=== PATIENT | female | born 1965 | race Caucasian/White ===

== ENCOUNTER 2024-05-23 14:32 | Outpatient (REF) | payer MEDICARE, SELFPAY ==
[2024-05-23 14:55] LABS: MANUAL DIFF FLAG NO
[2024-05-23 15:40] LABS: Basophils Absolute Auto 0.1 X10*3/uL (0.0-0.2); Basophils Percent Auto 1.3 % (0-2); Eosinophils Absolute Auto 0.3 X10*3/uL (0.0-0.4); Eosinophils Percent Auto 3.6 % (0-4); Hematocrit 38.2 % (37.0-47.0); Hemoglobin 12.1 g/dl (12.0-16.0); Imm Gran Abs Auto 0.02 X10*3/uL (0.00-0.03); Imm Gran Pct Auto 0.3 % (0.0-0.4); Lymphocytes Absolute Auto 1.3 X10*3/uL (1.2-4.9); Lymphocytes Percent Auto 15.7 % (20-40); Mean Corpuscular HGB Conc 31.7 g/dl (31.0-35.0); Mean Corpuscular Hemoglobin 30.8 pg (27.0-33.0); Mean Corpuscular Volume 97.2 fL (80.0-98.0); Mean Platelet Volume 9.5 fL (9.4-12.3); Monocytes Absolute Auto 0.5 X10*3/uL (0.1-1.2); Monocytes Percent Auto 6.8 % (2-11); Neutrophils Absolute Auto 5.8 x10*3/uL (2.0-8.3); Neutrophils Percent Auto 72.3 % (45-73); Platelet Count 297 X10*3/uL (160-400); Red Blood Count 3.93 X10*6/uL (4.20-5.50); Red Cell Distribution Width 14.7 % (11.0-16.0)
--- OUTSIDE RECORDS SUMMARY | 2024-05-23 15:52 | XMS_ITS | Encounter Summary ---
Author Organization [facility] Address [address] [place] [address] Phone Care Team Providers Care Mud Analysis Well Logging Captain Name Role Phone Archie Reyes DO Primary Care Provider [phone] Encounter Details Date Type Department Care Team (Late st Contact Info) Description 02/05/2023 Documentation Only [facility] [address] [place] [address] Laura Arceo [address] [place] [address] Social History Tobacco Use Types Packs/Day Years Used Date Smoking Tobacco: Every Day Cigarettes Comments Unknown Sex and Gender Information Value Date Recorded Sex Assigned at Not on file Legal Sex Female 4:13 PM EDT Gender Identity Not on file Sexual Orientation Not on file documented as of this encounter Plan of Treatment Not on file documented as of this encounter Visit Diagnoses Not on filedocumented in this encounter Care Teams Mud Analysis Well Logging Captain Relationship Specialty Start Date End Date Archie Reyes DO [address] [place] [id number] PCP - General Family Medicine 01/02/22 documented as of this encounter
--- OUTSIDE RECORDS SUMMARY | 2024-05-23 15:52 | XMS_ITS | Clinical Summary ---
Author Organization [facility], Address [address] [place] [address] [place] [address] Phone Care Team Providers Care Sash Installer Name Role Phone Archie Reyes DO Primary Care Provider [phone] Allergies No known active allergies Medications aspirin (ST DEV) 81 MG EC tablet Take 81 mg by mouth 1 (one) time each day Active atorvastatin (LIPITOR) 10 MG tablet Take 10 mg by mouth 1 (one) time each day Active carisoprodol (SOMA) 350 MG tablet Take 350 mg by mouth in the morning and 350 mg at noon and 350 mg in the evening. Active clonazePAM (KlonoPIN) 0.5 MG tablet Take 0.75 mg by mouth 1 (one) time each day in the morning Active Butalbital-APAP -Caff-Cod 63-026-50-30 MG capsule Take 1 capsule by mouth every 4 (four) hours Active omega-3 (FISH OIL) 1000 MG capsule Take 1,000 mg by mouth in the morning and 1,000 mg in the evening. Active folic acid (FOLVITE) 1 MG tablet Take 1 mg by mouth 1 (one) time each day Active gabapentin (NEURONTIN) 300 MG capsule Take 300 mg by mouth 1 (one) time each day Active GLUCOSAMINE-CHO NDROITIN ER PO Take by mouth Active lamoTRIgine (LaMICtal) 100 MG tablet Take 100 mg by mouth 1 (one) time each day Active levothyroxine (SYNTHROID, LEVOTHROID) 88 MCG tablet Take one full tablet M-F, one half tablet S-S Active lithium (LITHOBID) 300 MG CR tablet Take 300 mg by mouth 1 (one) time each day Do not crush, chew, or split. Active omeprazole (PriLOSEC) [address] capsule Take 40 mg by mouth in the morning and 40 mg in the evening. Do not crush or chew. . Active QUEtiapine (SEROquel) 100 MG tablet Take 150 mg by mouth 1 (one) time each day Active sucralfate (CARAFATE) 1 g tablet Take 1 g by mouth in the morning and 1 g in the evening. 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 4 Folic acid deficiency 02/24/20222023 Family History Medical History Relation Comments Other Father cardiac arrest Colon cancer Mother Relation Status Comments Father Mother Social History Tobacco Use Types Packs/Day Years Used Date Smoking Tobacco: Every Day Cigarettes Comments Unknown Sex and Gender Information Value Date Recorded Sex Assigned at Not on file Legal Sex Female 4:13 PM EDT Gender Identity Not on file Sexual Orientation Not on file Plan of Treatment Health Maintenance Due Date Last Done Comments Breast Cancer Screening 1964 Pneumococcal Vaccine: Pediat rics (0 to 5 Years) and At-Risk Patients (6 to 64 Years) (1 of 2 - PCV) 1970 Hepatitis B Vaccine (1 of 3 - 19+ 3-dose series) 11/04 Colorectal Cancer Screening: Annual FOBT 2013 Colorectal Cancer Screening: Colonoscopy 2013 Colorectal Cancer Screening: Sigmoidoscopy 2013 Influenza Vaccine (#1) 2023 Insurance [facility] Care Teams Sash Installer Relationship Specialty Start Date End Date Archie Reyes DO [address] [place] [id number] PCP - General Family Medicine 01/02/22
--- OUTSIDE RECORDS SUMMARY | 2024-05-23 15:52 | XMS_ITS | Encounter Summary ---
Author Organization [facility] Address [address] [place] [address] Phone Care Team Providers Care Silicator Name Role Phone Archie Reyes DO Primary Care Provider [phone] Encounter Details Date Type Department Care Team (Late st Contact Info) Description 01/02/2022 Documentation Only [facility] [place], [address] [place] [address] [place] [address] [place] [address] Social History Tobacco Use Types Packs/Day Years Used Date Smoking Tobacco: Never Assessed Comments Unknown Sex and Gender Information Value Date Recorded Sex Assigned at Not on file Legal Sex Female 4:13 PM EDT Gender Identity Not on file Sexual Orientation Not on file documented as of this encounter Plan of Treatment Not on file documented as of this encounter Visit Diagnoses Not on filedocumented in this encounter Care Teams Silicator Relationship Specialty Start Date End Date Archie Reyes DO [address] [place] [phone] PCP - General Family Medicine 01/02/22 documented as of this encounter
--- OUTSIDE RECORDS SUMMARY | 2024-05-23 15:52 | XMS_ITS | Encounter Summary ---
Author Organization [facility] Address [address] [place] [address] Care Team Providers Care Zyglo Technician Name Role Phone Lizzie Garrett Primary Care Provider [phone] Encounter Details Date Type Department Care Team (Late st Contact Info) Description 05/10/2024 Telephone Gastroenterology - [address] [place] [address] Ever Castillo MD [address] [place] R [address] [place] [id number] Social History Tobacco Use Types Packs/Day Years Used Date Smoking Tobacco: Never Assessed Comments Unknown Sex and Gender Information Value Date Recorded Sex Assigned at Not on file Legal Sex Female 6:15 AM EST Gender Identity Not on file Sexual Orientation Not on file documented as of this encounter Progress Notes * Neisha Gifford - 05/10/2024 1:57 PM EST Rescheduled pt for 07/01/24 at 1:45pm documented in this encounter Plan of Treatment Upcoming Encounters Date Type Department Care Team (Late st Contact Info) Description 07/01/2024 1:45 PM EDT Office Visit Gastroenterology - [address] [place] [phone] Ever Castillo MD [address] [place] [address] [place] [address] [phone] documented as of this encounter Visit Diagnoses Not on filedocumented in this encounter Care Teams Zyglo Technician Relationship Specialty Start Date End Date Lizzie Garrett PA [address] PCP - General Physician Certified Veterinary Technician 02/03/24 documented as of this encounter
--- OUTSIDE RECORDS SUMMARY | 2024-05-23 15:52 | XMS_ITS | Encounter Summary ---
Author Organization [facility] Address [address] [place] [address] Phone Care Team Providers Care Biological Inspector Name Role Phone Archie Reyes DO Primary Care Provider [phone] Encounter Details Date Type Department Care Team (Late st Contact Info) Description 01/02/2022 Documentation Only [facility] [place], [address] [place] [address] [place] [address] [place] [address] Social History Tobacco Use Types [...] on filedocumented in this encounter Care Teams Biological Inspector Relationship Specialty Start Date End Date Archie Reyes DO [address] [place] [id number] PCP - General Family Medicine 01/02/22 documented as of this encounter
--- OUTSIDE RECORDS SUMMARY | 2024-05-23 15:52 | XMS_ITS | Clinical Summary ---
Author Organization [facility] [address] [facility] Address [address] [place] [address] Phone Care Team Providers Care Supervisor Testing Name Role Phone Lizzie Garrett Primary Care Provider [phone] Medications omeprazole (PriLOSEC) [address] capsuleIndicatio ns:gastroesophag eal reflux disease Take 1 capsule (40 mg total) by mouth 2 (two) times a day. Do not crush or chew. 60 each 5 03/16/2024 09/13/19 25 Active sucralfate (CARAFATE) 1 gram tabletIndication s:Gastroesophage al reflux disease without esophagitis TAKE 1 TABLET BY MOUTH FOUR TIMES DAILY BEFORE MEALS AND AT BEDTIME 120 tablet 3 05/02/2024 Active Active Problems Problem Noted Date Diagnosed Date GERD (gastroesophageal reflux disease) Hx of colonic polyps 03/02/2024 Constipation 03/02/2024 Encounters Date Type Department Care Team Description 05/10/2024 Telephone Gastroenterology - [address] [place] [phone] Ever Castillo MD 03/16/2024 Telephone Gastroenterology - [address] [place] [phone] Fanta Perla [place] 03/16/2024 Telephone Gastroenterology - [address] [place] [phone] Heidi Ovalles MA from Last 3 Months Social History Tobacco Use Types Packs/Day Years Used Date Smoking Tobacco: Never Assessed Comments Unknown Sex and Gender Information Value Date Recorded Sex Assigned at Not on file Legal Sex Female 6:15 AM EST Gender Identity Not on file Sexual Orientation Not on file Plan of Treatment Upcoming Encounters Date Type Department Care Team (Late st Contact Info) Description 07/01/2024 1:45 PM EDT Office Visit Gastroenterology - [address] [place] [phone] Ever Castillo MD [address] [place] [address] Health Maintenance Due Date Last Done Comments Breast Cancer Screening 1964 DTaP,Tdap,and Td Vaccines (1 - Tdap) 11/05/1983 Hepatitis B Vaccines (1 of 3 - 19+ 3-dose series) 11/05/1983 Cervical Cancer Screening: P ap Smear 1985 Zoster Vaccines (1 of 2) 2014 Colorectal Cancer Screening: Colonoscopy 03/16/2022 Depression Screening 03/16/2022 HIV Screening 03/16/2022 Hepatitis C Screening 03/16/2022 Medicare Annual Wellness Visit 03/16/2022 Social Influencers of Health Screening 03/16/2022 COVID-19 Vaccine ( - 2023-2 5 season) 2023 Influenza Vaccine (#1) 2023 RSV Immunization Patients 60 + Years Old (1 - 1-dose 75+ series) 11/05/2039 HIB Vaccines Aged Out No longer eligi ble based on patient's age to complete this topic HPV Vaccines Aged Out No longer eligi ble based on patient's age to complete this topic Hepatitis A Vaccines Aged Out No long er eligible based on patient's age to complete this topic IPV Vaccines Aged Out No longer eligi ble based on patient's age to complete this topic MMR Vaccines Aged Out No longer eligi ble based on patient's age to complete this topic Meningococcal ACWY Vaccine Aged Out N o longer eligible based on patient's age to complete this topic Pneumococcal Vaccine: Pediat rics (0 to 5 Years) and At-Risk Patients (6 to 64 Years) Aged Out No longer eligible b ased on patient's age to complete this topic RSV Immunization Patients Un yadira 20 months Aged Out No longer eligible b ased on patient's age to complete this topic Varicella Vaccines Aged Out No longer eligible based on patient's age to complete this topic Insurance [employer] Advance Directives Documents on File Type Date Recorded Patient Postal Support Employee Expl anation Health Care Decision (hx) 10/23/2021 AD HENRIQUEZ DIRECTIVE Health Care Decision (hx) 10/23/2021 AD HENRIQUEZ DIRECTIVE Care Teams Supervisor Testing Relationship Specialty Start Date End Date Lizzie Garrett PA [address] [place] PCP - General Physician Checker Stocker 02/03/24
[2024-05-23 16:08] LABS: Anion Gap 10 (12-20); Blood Urea Nitrogen 13 mg/dL (9-16); Calcium 8.9 mg/dL (8.4-10.2); Carbon Dioxide 30 mmol/L (22-29); Chloride 109 mmol/L (96-108); Estimated Glomerular Filt Rate > 60; Glucose Random 86 mg/dL (60-115); Potassium 3.8 mmol/L (3.3-5.1); Sodium 145 mmol/L (135-145)
[2024-05-23 16:39] LABS: Folate > 20.0 ng/mL (> or = 4.0); Vitamin B12 394 pg/mL (200-900)
== END 2024-05-23 14:33 | disposition home or self-care (01) ==
LOC: HO.LAB 14:32
PROVIDERS: PCP Physician Assistant Medical; Visit Provider Registered Nurse
DX: G31.84 Mild cognitive impairment of uncertain or unknown etiology (principal)
CPT/HCPCS: 36415; 80048; 82607; 82746; 84439; 84443; 85025

== ENCOUNTER 2024-09-16 15:50 | Outpatient (REF) | payer MEDICARE, SELFPAY ==
--- NOTE | ~2024-09-16 | CT_ITS ---
EXAMINATION: CT HEAD WITHOUT CONTRAST CLINICAL INFORMATION: Mild cognitive impairment COMPARISON: April 03, 2017 TECHNIQUE: Contiguous axial imaging was performed from the skull base to vertex without intravenous administration of contrast. This CT examination was performed using dose optimization techniques as appropriate, variously including the following: *Automated exposure control *Adjustment of mA and/or kV according to patient size (this includes techniques or standardized protocols for targeted exams where dose is matched to indication/reason for exam; i.e. extremities or head) *Use of iterative reconstruction technique DLP: 684 mGY*cm FINDINGS: There is no acute ischemic change. There is no intracranial hemorrhage. There is no mass-effect or midline shift. Basal cisterns and ventricles are within normal limits for size. Paranasal sinuses are clear. No bony abnormality. CT/CT head/brain wo IV con IMPRESSION: No acute intracranial abnormality. Electronically signed by: Bhavesh Akhtar MD 09/16/2024 05:55 PM EDT
--- OUTSIDE RECORDS SUMMARY | 2024-09-16 15:53 | XMS_ITS | Clinical Summary ---
Author Organization [facility] [address] [facility] Address [address] [place] [address] Phone Care Team Providers Care Stage Builder Name Role Phone Lizzie Garrett Primary Care Provider [phone] Allergies No known active allergies Medications sucralfate (CARAFATE) 1 gram tabletIndicatio ns:Gastroesopha geal reflux disease without esophagitis TAKE 1 TABLET BY MOUTH FOUR TIMES DAILY BEFORE MEALS AND AT BEDTIME 120 tablet 3 05/02/19 25 Active atorvastatin (LIPITOR) 20 mg tablet Take 1 tablet (20 mg total) by mouth 1 (one) time each day. 05/13/19 25 Active butalbital-acet aminophen-caffe ine-codeine (FIORICET WITH CODEINE) [id number] mg per capsule Take 1 capsule by mouth every 6 (six) hours if needed. Max Daily Amount: 4 capsules 05/23/19 25 Active carisoprodoL (SOMA) 350 mg tablet Take 1 tablet (350 mg total) by mouth 2 (two) times a day if needed. 05/20/19 25 Active clonazePAM (KlonoPIN) 0.5 mg tablet TAKE 1 TABLET BY MOUTH TWICE DAILY NEEDED FOR SEVERE ANXIETY 05/16/19 25 Active cloNIDine (CATAPRES) 0.2 mg tablet TAKE 1 TABLET BY MOUTH TWICE DAILY NEEDED FOR PANIC ATTACKS 02/23/20 24 Active gabapentin (NEURONTIN) 400 mg capsule Take 1 capsule (400 mg total) by mouth. at bedtime 05/13/19 25 Active lamoTRIgine (LaMICtal) 200 mg tablet Take 1 tablet (200 mg total) by mouth 1 (one) time each day. 05/19/19 25 Active levothyroxine (SYNTHROID, LEVOTHROID) 88 mcg tablet TAKE 1 TABLET BY MOUTH THURSDAY THROUGH THURSDAY THEN TAKE 1 AND 1/2 TABLETS BY MOUTH THURSDAY AND Thursday05/02/19 25 Active QUEtiapine XR (SEROquel XR) 200 mg 24 hr tablet TAKE 1 TABLET BY MOUTH EVERY NIGHT AT BEDTIME WITH 50 MG TABLET FOR TOTAL DOSE OF 250 MG 11/05/19 24 Active QUEtiapine XR (SEROquel XR) 150 mg 24 hr tablet Take 1 tablet (150 mg total) by mouth. at bedtime 06/25/19 24 Active triamcinolone (KENALOG) 0.025 % cream apply topically twice daily for 14 days 12/03/19 24 Active trospium 60 mg capsule,extende d release 24hr Take 1 capsule (60 mg total) by mouth 1 (one) time each day in the morning. 04/11/20 24 Active omeprazole (PriLOSEC) [address] capsuleIndicati ons:Gastroesoph ageal reflux disease without esophagitis TAKE 1 CAPSULE(40 MG) BY MOUTH TWICE DAILY. DO NOT CRUSH OR CHEW 60 capsule 3 09/03/19 25 Active omeprazole (PriLOSEC) [address] capsuleIndicati ons:gastroesoph ageal reflux disease Take 1 capsule (40 mg total) by mouth 2 (two) times a day. Do not crush or chew. 60 each 5 03/16/20 24 025 Discontinued Active Problems Problem Noted Date Diagnosed Date Postoperative alteration in bowel elimination pa ttern 05/30/2024 Change in bowel function 05/30/2024 GERD (gastroesophageal reflux disease) Hx of colonic polyps 03/02/2024 Constipation 03/02/2024 Encounters Date Type Department Care Team Description 06/22/2024 9:36 AM EDT Anesthesia Event [facility] [address] [place] [id number] Rolly Tovar MD 06/22/2024 8:19 AM EDT - 06/22/2024 11:59 PM EDT Hospital Encounter [facility] [address] [place] [address] Ever Castillo MD Chang, Daniel J, MD Barnes, Tyanna R, CRNA Personal history of other colon polyps; Family history of colonic polyps; GERD (gastroesophageal reflux disease) Discharge Disposition: Home or Self Care from Last 3 Months Surgical History Surgery Date Site/Laterality Comments SECTION, LOW TRANSVERSE ENDOMETRIAL ABLATION TONSILLECTOMY LUMBAR LAMINECTOMY Medical History Medical History Date Comments Hyperlipidemia Hypertension Chronic kidney disease Anxiety Depression Rosio thyroiditis Fibromyalgia Social History Tobacco Use Types Packs/Day Years Used Date Smoking Tobacco: Every Day Cigarettes Smokeless Tobacco: Never Tobacco Cessation:Ready to Q uit: Not Asked; Counseling Given: Not Answered Alcohol Use Standard Drinks/Week Comments Never 0 (1 standard drink = 0.6 oz pur e alcohol) Interpersonal Safety Answer Date Record ed Physical Abuse 06/22/2024 Verbal Abuse 06/22/2024 Comments Unknown Sex and Gender Information Value Date Recorded Sex Assigned at Female 06/21/2024 2:38 PM EDT Legal Sex Female 6:15 AM EST Gender Identity Female 06/21/2024 2:37 PM EDT Sexual Orientation Straight 06/22/2024 8: 16 AM EDT Obstetrics History Last Filed Vital Signs Vital Sign Reading Time Taken Comments Blood Pressure 112/85 06/22/2024 10:29 AM EDT Pulse 76 06/22/2024 10:29 AM EDT Temperature 36.8 ??C (98.3 ??F) 06/22/2024 10:09 AM E DT Respiratory Rate 18 06/22/2024 10:29 AM EDT Oxygen Saturation 99% 06/22/2024 10:29 AM EDT Inhaled Oxygen Concentration - - Weight 60.8 kg (134 lb) 06/22/2024 9:20 AM EDT Height 157.5 cm (5' 2 ) 06/22/2024 9:20 AM EDT Body Mass Index 24.51 06/22/2024 9:20 AM EDT Plan of Treatment Upcoming Encounters Date Type Department Care Team (Late st Contact Info) Description 11/18/2024 2:00 PM EDT Consult [facility] [address] [place] [address] Bhavna Alvarado PA [address] [place] [address] Health Maintenance Due Date Last Done Comments Breast Cancer Screening 1965 DTaP,Tdap,and Td Vaccines (1 - Tdap) 11/05/1983 Hepatitis B Vaccines (1 of 3 - 19+ 3-dose series) 11/05/1983 Pneumococcal Vaccine: 50+ Years (1 of 2 - PCV) 11/05/1983 Pneumococcal Vaccine: Pediatrics (0 to 5 Years) and At-Risk Patients (6 to 64 Years) (1 of 2 - PCV) 11/05/1983 Cervical Cancer Screening: P ap Smear 1985 Zoster Vaccines (1 of 2) 2014 COVID-19 Vaccine (3 - Modern a risk series) 10/10/2020 09/12/2020, 08/14/2020 Cholesterol Screening (Lipid Panel) 03/16/2022 Depression Screening 03/16/2022 HIV Screening 03/16/2022 Hepatitis C Screening 03/16/2022 Medicare Annual Wellness Visit 03/16/2022 Social Influencers of Health Screening 03/16/2022 Hypertension/CHF/CAD Annual BMP Blood Test 05/30/2024 Influenza Vaccine (Season Ended) 2024 Colorectal Cancer Screening: Colonoscopy 06/22/2034 06/22/2024 RSV Immunization Adult Patients (1 - 1-dose 75+ series) 11/05/2039 HIB [...] patient's age to complete this topic Meningococcal B Vaccine Aged Out No l onger eligible based on patient's age to complete this topic RSV Immunization Patients Under 20 months Aged Out No longer eligible b ased on patient's age to complete this topic Varicella Vaccines Aged Out No longer eligible based on patient's age to complete this topic Procedures Procedure Name Priority Date/Time Associated Diagnosis Comments EGD Routine 06/22/2024 10:08 AM EDT GERD (gastroesophageal reflux disease) COLONOSCOPY Routine 06/22/2024 10:08 AM EDT Personal history of other colon polyps Family history of colonic polyps TISSUE EXAM Routine 06/22/2024 9:44 AM EDT Personal history of other colon polyps Family history of colonic polyps GERD (gastroesophageal reflux disease) from Last 3 Months Results * COLONOSCOPY Anesthesia - MAC; [facility] ENDOSCOPY (06/22/2024 10:08 AM EDT) Anatomical Region Laterality Modality Other 06/22/2024 9:50 AM EDT Impressions 06/22/2024 10:12 AM EDT - Preparation of the colon was fair. ? - One 2 mm polyp in the proximal ascending colon, ? removed with a cold biopsy forceps. Resected and ? retrieved. ? - The examination was otherwise normal on direct and ? retroflexion views. ? - Biopsies were taken with a cold forceps for ? histology in the entire colon. Recommendation: ?- Patient has a contact number available for ? emergencies. The signs and symptoms of potential ? delayed complications were discussed with the patient. ? Return to normal activities tomorrow. Written ? discharge instructions were provided to the patient. ? - Resume previous diet. ? - Continue present medications. ? - Await pathology results. ? - Repeat colonoscopy in 1 year for surveillance. Narrative 06/22/2024 10:12 AM EDT [facility] Patient Name: Christiana Graham Procedure Date: 06/22/2024 9:50 AM Date of : 1965 Age: 58 Room: ROOM 14 Gender: Female Note Status: Finalized Attending MD: Ever Castillo MD, Procedure Date No Time: 06/22/2024 Procedure: ? Colonoscopy Indications: ? Change in bowel habits Providers: ? Ever Castillo MD Referring MD: ?Ever Castillo MD Medicines: ? Monitored Anesthesia Care Complications: ? No immediate complications. Estimated Blood Loss: ? Estimated blood loss was minimal. Procedure: ? After I obtained informed consent, the scope was ? passed under direct vision. Throughout the procedure, ? the patient's blood pressure, pulse, and oxygen ? saturations were monitored continuously. The ? Colonoscope was introduced through the anus and ? advanced to the cecum, identified by appendiceal ? orifice and ileocecal valve. The colonoscopy was ? performed without difficulty. The patient tolerated ? the procedure well. The quality of the bowel ? preparation was fair.I was able to clear much of her ? colon, just thickened liquid kept jamming scope, vast ? majority inspected though. Findings: ?A 2 mm polyp was found in the proximal ascending ? colon. The polyp was sessile. The polyp was removed ? with a cold biopsy forceps. Resection and retrieval ? were complete. ? Biopsies were taken with a cold forceps in the entire ? colon for histology. ?melanosis coli, not real colitis ? though. ? The exam was otherwise without abnormality on direct ? and retroflexion views. Procedure Code(s): ? --- Professional --- ? 06836, Colonoscopy, flexible; with biopsy, single or ? multiple Diagnosis Code(s): ? --- Professional --- ? R19.4, Change in bowel habit CPT copyright 2020 [employer]. All rights reserved. The codes documented in this report are preliminary and upon medical coder review may be revised to meet current compliance requirements. MD Ever Askew MD 06/22/2024 10:12:20 AM This report has been signed electronically.Ever Castillo MD Number of Addenda: 0 Note Initiated On: 06/22/2024 9:50 AM Scope In: Scope Out: ? Endoscopy Department at [facility] - [address] [place] [address], ? [place] [address] Procedure Note Ever Castillo MD - 06/22/2024 [facility] Patient Name: Christiana Graham Procedure Date: 06/22/2024 9:50 AM Date of : 1965 Age: 58 Room: ROOM 14 Gender: Female Note Status: Finalized Attending MD: Ever Castillo MD, Procedure Date No Time: 06/22/2024 Procedure: Colonoscopy Indications: Change in bowel habits Providers: Ever Castillo MD Referring MD: Ever Castillo MD Medicines: Monitored Anesthesia Care Complications: No immediate complications. Estimated Blood Loss: Estimated blood loss was minimal. Procedure: After I obtained informed consent, the scope was passed under direct vision. Throughout theprocedure, the patient's blood pressure, pulse, and oxygen saturations were monitored continuously. The Colonoscope was introduced through the anus and advanced to the cecum, identified by appendiceal orifice and ileocecal valve. The colonoscopy was performed without difficulty. The patient tolerated the procedure well. The quality of the bowel preparation was fair.I was able to clear much ofher colon, just thickened liquid kept jamming scope,vast majority inspected though. Findings: A 2 mm polyp was found in the proximal ascending colon. The polyp was sessile. The polyp was removed with a cold biopsy forceps. Resection and retrieval were complete. Biopsies were taken with a cold forceps in theentire colon for histology. ?melanosis coli, not realcolitis though. The exam was otherwise without abnormality ondirect and retroflexion views. Procedure Code(s): --- Professional --- 38759, Colonoscopy, flexible; with biopsy, singleor multiple Diagnosis Code(s): --- Professional --- R19.4, Change in bowel habit CPT copyright 2020 [employer]. All rights reserved. The codes documented in this report are preliminary and upon medical coder reviewmay be revised to meet current compliance requirements. MD Ever Askew MD 06/22/2024 10:12:20 AM This report has been signed electronically.Ever Castillo MD Number of Addenda: 0 Note Initiated On: 06/22/2024 9:50 AM Scope In: Scope Out: Endoscopy Department at [facility] - [address] [place] [id number] IMPRESSION: - Preparation of the colon was fair. - One 2 mm polyp in the proximal ascending colon, removed with a cold biopsy forceps. Resected and retrieved. - The examination was otherwise normal on directand retroflexion views. - Biopsies were taken with a cold forceps for histology in the entire colon. Recommendation: - Patient has a contact number available for emergencies. The signs and symptoms of potential delayed complications were discussed with thepatient. Return to normal activities tomorrow. Written discharge instructions were provided to thepatient. - Resume previous diet. - Continue present medications. - Await pathology results. - Repeat colonoscopy in 1 year for surveillance. us Ever Castillo MD GI~PROCEDURE ORDERABLES Final R esult * EGD Anesthesia - MAC; [facility] ENDOSCOPY (06/22/2024 10:08 AM EDT) Anatomical Region Laterality Modality Other 06/22/2024 9:37 AM EDT Impressions 06/22/2024 9:50 AM EDT - Z-line irregular, 36 cm from the incisors. Biopsied. ? - The examination was otherwise normal. ? - Biopsies were taken with a cold forceps for ? histology in the entire examined stomach. Recommendation: ?- Resume previous diet. ? - Continue present medications. ? - Await pathology results. Narrative 06/22/2024 9:50 AM EDT [facility] Patient Name: Christiana Graham Procedure Date: 06/22/2024 9:37 AM Date of : 1965 Age: 58 Room: ROOM 14 Gender: Female Note Status: Finalized Attending MD: Ever Castillo MD, Procedure Date No Time: 06/22/2024 Procedure: ? Upper GI endoscopy Indications: ? Nausea, Persistent vomiting of unknown cause Providers: ? Ever Castillo MD Referring MD: ?Ever Castillo MD Medicines: ? Monitored Anesthesia Care Complications: ? No immediate complications. Estimated Blood Loss: ? Estimated blood loss was minimal. Procedure: ? After obtaining informed consent, the endoscope was ? passed under direct vision. Throughout the procedure, ? the patient's blood pressure, pulse, and oxygen ? saturations were monitored continuously. The Endoscope ? was introduced through the mouth, and advanced to the ? third part of duodenum. The upper GI endoscopy was ? accomplished without difficulty. The patient tolerated ? the procedure well. Findings: ?The Z-line was irregular and was found 36 cm from the ? incisors. Biopsies were taken with a cold forceps for ? histology. ? The exam was otherwise without abnormality. ? Biopsies were taken with a cold forceps in the entire ? examined stomach for histology. Procedure Code(s): ? --- Professional --- ? 83212, Esophagogastroduodenoscopy, flexible, ? transoral; with biopsy, single or multiple Diagnosis Code(s): ? --- Professional --- ? K22.89, Other specified disease of esophagus ? R11.0, Nausea ? R11.15, Cyclical vomiting syndrome unrelated to ? migraine CPT copyright 2020 [employer]. All rights reserved. The codes documented in this report are preliminary and upon medical coder review may be revised to meet current compliance requirements. MD Ever Askew MD 06/22/2024 9:50:24 AM This report has been signed electronically.Ever Castillo MD Number of Addenda: 0 Note Initiated On: 06/22/2024 9:37 AM Scope In: Scope Out: ? Endoscopy Department at [facility] - [address] [place] [address], ? [place] [address] Procedure Note Ever Castillo MD - 06/22/2024 [facility] Patient Name: Christiana Graham Procedure Date: 06/22/2024 9:37 AM Date of : 1965 Age: 58 Room: ROOM 14 Gender: Female Note Status: Finalized Attending MD: Ever Castillo MD, Procedure Date No Time: 06/22/2024 Procedure: Upper GI endoscopy Indications: Nausea, Persistent vomiting of unknown cause Providers: Ever Castillo MD Referring MD: Ever Castillo MD Medicines: Monitored Anesthesia Care Complications: No immediate complications. Estimated Blood Loss: Estimated blood loss was minimal. Procedure: After obtaining informed consent, the endoscope was passed under direct vision. Throughout theprocedure, the patient's blood pressure, pulse, and oxygen saturations were monitored continuously. TheEndoscope was introduced through the mouth, and advanced tothe third part of duodenum. The upper GI endoscopy was accomplished without difficulty. The patienttolerated the procedure well. Findings: The Z-line was irregular and was found 36 cm fromthe incisors. Biopsies were taken with a cold forcepsfor histology. The exam was otherwise without abnormality. Biopsies were taken with a cold forceps in theentire examined stomach for histology. Procedure Code(s): --- Professional --- 07530, Esophagogastroduodenoscopy, flexible, transoral; with biopsy, single or multiple Diagnosis Code(s): --- Professional --- K22.89, Other specified disease of esophagus R11.0, Nausea R11.15, Cyclical vomiting syndrome unrelated to migraine CPT copyright 2020 [employer]. All rights reserved. The codes documented in this report are preliminary and upon medical coder reviewmay be revised to meet current compliance requirements. MD Ever Askew MD 06/22/2024 9:50:24 AM This report has been signed electronically.Ever Castillo MD Number of Addenda: 0 Note Initiated On: 06/22/2024 9:37 AM Scope In: Scope Out: Endoscopy Department at [facility] - [address] [place] [id number] IMPRESSION: - Z-line irregular, 36 cm from the incisors. Biopsied. - The examination was otherwise normal. - Biopsies were taken with a cold forceps for histology in the entire examined stomach. Recommendation: - Resume previous diet. - Continue present medications. - Await pathology results. us Ever Castillo MD GI~PROCEDURE ORDERABLES Final R esult * Tissue exam (06/22/2024 9:44 AM EDT) Final Diagnosis A. Stomach, biopsies: Gastric mucosa with mild chronic inactive gastritis and reactive changes. No Helicobacter type gastritis identified. B. Esophagus, Z-line biopsies: Deutsch's esophagus. Negative for dysplasia. C. Ascending Colon, polyp x1: Tubular adenoma. D. Colon, Random biopsies: Benign colonic mucosa with no specific pathologic change. No colitis identified. 06/23/2024 10:44 AM EDT [facility] HOSPITAL LAB Gross Description A. Stomach, biopsies: Labeled biopsies stomach . Received in formalin are five soft, mccray-pink to red tissue fragments ranging from 0.15 cm to 0.3 cm in greatest diameter, which are wrapped in paper and submitted in toto in one cassette, five pieces, multiple levels. B. Esophagus, Z-line biopsies: Labeled Z-line bi esophagus . Received in formalin are two soft, mccray-white to pink-red tissue fragments measuring 0.15 cm and 0.3 cm in greatest diameter, which are wrapped in paper and submitted in toto in one cassette, two pieces, multiple levels. C. Large Intestine, Right/Ascending Colon, polyp x1: Labeled polyp x 1 ascend colon . Received in formalin are two soft, mccray-pink polypoid tissues measuring approximately 0.25 cm in greatest diameter, which are wrapped in paper and submitted in toto in one cassette, two pieces, multiple levels. D. Colon, Random biopsies: Labeled random bi colon . Received in formalin are seven soft to friable, mccray-red to brown tissue fragments ranging from 0.15 cm to 0.3 cm in greatest diameter, which are wrapped in paper and submitted in toto in one cassette, seven pieces, multiple levels. TS 06/23/2024 10:44 AM EDT [facility] Disclaimer Unless otherwise specified, all tissue is 10% NB formalin fixed and paraffin embedded. 06/23/2024 10:44 AM EDT [facility] Tissue Stomach structure / Unknown 06/22/2024 9:44 AM EDT 06/22/2024 11:24 AM EDT Tissue specimen (specimen) Esophageal structure / Unknown 06/22/2024 9:47 AM EDT 06/22/2024 11:24 AM EDT Tissue specimen (specimen) Ascending colon structure / Unknown 06/22/2024 9:58 AM EDT 06/22/2024 11:24 AM EDT Tissue specimen (specimen) Colon structure / Unknown 06/22/2024 9:59 AM EDT 06/22/2024 11:24 AM EDT Ever Castillo MD LAB PATHOLOGY ORDERABLES Final Result [facility] [address] [place] [address], from Last 3 Months Insurance [employer] Advance Directives Documents on File Type Date Recorded Patient Electrical Installation Supervisor Expl anation Health Care Decision (hx) 10/23/2021 AD HENRIQUEZ DIRECTIVE Health Care Decision (hx) 10/23/2021 AD HENRIQUEZ DIRECTIVE Care Teams Stage Builder Relationship Specialty Start Date End Date Lizzie Garrett PA [address] [place] [id number] PCP - General Physician Energy Engineer 09/08/24
== END 2024-09-16 15:51 | disposition home or self-care (01) ==
LOC: HO.CT 15:50
PROVIDERS: PCP Internal Medicine; Visit Provider Registered Nurse
DX: G31.84 Mild cognitive impairment of uncertain or unknown etiology (principal)
CPT/HCPCS: 70450

== ENCOUNTER → 2024-09-16 16:26 | Outpatient (BNV) | payer MEDICARE, SELFPAY | PROVIDERS: PCP Internal Medicine; Visit Provider Radiology Diagnostic Radiology | DX: G31.84 Mild cognitive impairment of uncertain or unknown etiology (principal) | CPT/HCPCS: 70450 ==